=== PATIENT | male | born 1955 | race Caucasian/White ===

== ENCOUNTER 2017-10-04 14:22 | Emergency (ER) | payer OTHER ==
[~2017-10-04] VITALS: Ht 167.6 cm; Wt 90.7 kg
[~2017-10-04 14:22] MED LIST: PERCOCET 5-3251 EACH PO; PROZAC40 MG
== END 2017-10-04 16:03 | disposition home or self-care (01) ==
LOC: ER 14:22
DX: F10.129 Alcohol abuse with intoxication, unspecified (principal); K74.60 Unspecified cirrhosis of liver; I10 Essential (primary) hypertension; F32.9 Major depressive disorder, single episode, unspecified

== ENCOUNTER 2019-11-27 20:23 | Emergency (ER) | payer OTHER ==
[~2019-11-27] VITALS: Ht 167.6 cm; Wt 90.7 kg
[2019-11-27 21:06] LABS: ABSOLUTE NEUTROPHILS 4.6 thou/uL (1.4-8.2); BASOPHILS 0.7 % (0.0-2.0); EOSINOPHILS 0.8 % (0.0-3.0); HEMATOCRIT 47.8 % (42.0-52.0); HEMOGLOBIN 16.3 gm/dL (14.0-18.0); LYMPHOCYTES 21.9 % (24.0-44.0); MCH 33.2 pg (26.0-34.0); MCHC 34.2 g/dL (28.0-37.0); MCV 97.1 fL (80.0-100.0); MONOCYTES 10.6 % (1.0-8.0); PLATELET COUNT 143 thou/uL (150-400); RBC 4.92 mil/uL (4.50-6.00); RDW 16.3 % (10.5-14.5); WBC 6.9 thou/uL (4.0-11.0)
[2019-11-27 21:11] LABS: CREATININE 0.8 mg/dL (0.7-1.3); POTASSIUM 3.6 mmol/L (3.5-5.1)
[2019-11-27 21:16] LABS: TOTAL BILIRUBIN 1.3 mg/dL (0.2-1.0); TOTAL PROTEIN 6.8 g/dL (6.4-8.2)
[2019-11-28] MEDS ORDERED: CHLORDIAZEPOXID25 M1 PO (03:25)
[2019-11-28 03:41] VITALS: BP 139/78
--- NOTE | 2019-11-28 07:44 | EKG ---
[facility] [place] [address] ELECTROCARDIOGRAM REPORT Name: MILADYS DAMON Room #: DEP [facility]#: [id number] Admission: 11/27/19 Attend Phys: Discharge: 11/28/19 Date of : 53 Report #: [id number] THIS REPORT FOR: cc: KENNY Navarrete family physician/PCP KENNY Navarrete family physician/PCP Corona Lloyd MD [facility] THIS REPORT FOR: //name// [facility] ED Test Date: 2019-11-27 Test Time: 21:11:17 Pat Name: MILADYS DAMON Department: Room: Gender: [employer]: [facility] : 1955 Requested By: Jean Paul Casillas Order Number: [id number] MD: Corona Lloyd Measurements Intervals [place] Rate: 105 P: 37 CT: 141 QRS: -17 QRSD: 91 T: 3 QT: 328 QTc: 434 Interpretive Statements Sinus tachycardia Borderline left axis deviation Low voltage, precordial leads Compared to ECG 03/15/2003 06:27:28 T-wave abnormality no longer present Electronically Signed On 11-28-2019 7:44:12 CDT by Corona Lloyd [email or web address] <ELECTRONICALLY SIGNED> By: Corona Lloyd MD, FAC 11/28/19 0744 10 10 Corona Lloyd MD, [facility] /EPI
== END 2019-11-28 03:41 | disposition home or self-care (01) ==
LOC: ER 20:23
PROVIDERS: Emergency Medicine
DX: F10.10 Alcohol abuse, uncomplicated (principal); I10 Essential (primary) hypertension; Z79.899 Other long term (current) drug therapy; Z98.890 Other specified postprocedural states; Y90.9 Presence of alcohol in blood, level not specified